=== PATIENT | female | born 1980 | race Caucasian/White ===

== ENCOUNTER → 2019-07-13 | Outpatient (REF) | payer OTHER | LOC: M SFHCLERA 10:02 | PROVIDERS: ATTEND Nurse Practitioner Family | DX: Z87.898 Personal history of other specified conditions (principal) ==

== ENCOUNTER → 2019-07-29 | Outpatient (CLI) | payer OTHER ==
--- NOTE | 2019-07-29 19:05 | REP ---
Chest x-ray: Two views. History: Shortness of breath. No comparison chest x-rays. Findings: There is a large fairly dense infiltrate in the right upper lobe consistent with pneumonia. Remaining lung sweet are clear. Pleural angles are sharp. The heart is not enlarged. Pulmonary vasculature is not increased. Impression: Right upper lobe infiltrate consistent with pneumonia. Comparison chest x-ray suggested to document clearing after treatment in 3-4 weeks. Electronically Signed by Anish Fung MD 07/29/2019 06:57 P
== END ==
LOC: M LRY 18:41
PROVIDERS: ATTEND Nurse Practitioner Family
DX: R91.8 Other nonspecific abnormal finding of lung field (principal)
CPT/HCPCS: 71046; 86308; G0463